=== PATIENT | male | born 1950 | race Caucasian/White ===

== ENCOUNTER 2024-01-12 00:56 | Inpatient (IN) | payer OTHER, MEDICAID ==
[2024-01-12] VITALS (8 sets, daily range): BP systolic 121–135; PULSE 64–87; RESP 13–20; TEMP 97.5–98.4; O2SAT 93–99
[~2024-01-12] VITALS: Ht 190.5 cm; Wt 77.6 kg
[2024-01-12] MEDS: THIAMINE HCL 100 MG TABLET PO ONE (01:00)
[2024-01-12] MEDS: LIDOCAINE PATCH 5% 1 EA TP ONE (01:00)
[2024-01-12] MEDS ORDERED: cefTRIAXone 1 GM IVPB PREMIX 50 ML IV SCH (01:00)
[2024-01-12] MEDS: LEVOTHYROXINE SODIUM 0.025 MG TABLET PO ONE (01:00)
[2024-01-12] MEDS: amLODIPine BESYLATE 10 MG TABLET PO ONE (01:00)
[2024-01-12] MEDS: ASPIRIN 81 MG TAB.CHEW PO ONE ×2 (01:00→11:30)
[2024-01-12] MEDS: FOLIC ACID 1 MG TABLET PO ONE (01:00)
[2024-01-12] MEDS: lisinopriL 20 MG TABLET PO ONE (01:00)
[2024-01-12 01:32] LABS: BASOPHILS # (AUTO) 0.1 K/uL (0.0-0.2); BASOPHILS % (AUTO) 0.5 % (0.0-2.0); EOSINOPHILS # (AUTO) 0.1 K/uL (0.0-0.4); EOSINOPHILS % (AUTO) 0.7 % (0.0-4.0); HEMATOCRIT 28.6 % (36-54); HEMOGLOBIN 10.1 g/dL (14.0-18.0); LYMPHOCYTES # (AUTO) 0.8 K/uL (1.0-5.5); LYMPHOCYTES % (AUTO) 7.7 % (20.5-51.5); MEAN CORPUSCULAR HEMOGLOBIN 31 pg (27-31); MEAN CORPUSCULAR HGB CONC 35 % (32-36); MEAN CORPUSCULAR VOLUME 88 fL (79.0-98.0); MONOCYTES # (AUTO) 0.9 K/uL (0.0-1.0); MONOCYTES % (AUTO) 8.7 % (1.7-9.3); NEUTROPHILS # (AUTO) 8.6 K/uL (1.8-7.7); NEUTROPHILS % (AUTO) 82.4 % (40.0-70.0); PLATELET COUNT (AUTO) 564 K/uL (130-430); RED BLOOD CELL COUNT(AUTO) 3.27 MIL/uL (4.2-6.2); RED CELL DISTRIBUTION WIDTH 12.8 % (9.0-15.0); WHITE BLOOD COUNT (AUTO) 10.4 K/uL (4.8-10.8)
[2024-01-12 01:48] LABS: VENOUS PCO2 29.2 mmHg (41.0-54.0); VENOUS PH BG 7.536 (7.310-7.450); VENOUS PO2 64.9 mmHg (25.0-35.0)
[2024-01-12 01:49] LABS: VENOUS BASE EXCESS 2.2 mmol/l (-2.0-2.0)
[2024-01-12 02:00] LABS: ALANINE AMINOTRANSFERASE 37 U/L (12-78); ALBUMIN 2.1 g/dL (3.4-4.8); ANION GAP 5 (5-15); ASPARTATE AMINOTRANSFERASE 25 U/L (10-37); CALCIUM 8.5 mg/dL (8.4-11.0); CARBON DIOXIDE 28 mmol/L (23-29); CHLORIDE 93 mmol/L (98-107); CREATININE 1.32 mg/dL (0.55-1.30); GLUCOSE 319 mg/dL (74-106); POTASSIUM 5.2 mmol/L (3.5-5.1); SODIUM SERUM 126 mmol/L (136-145); TOTAL BILIRUBIN 0.6 mg/dL (0.0-1.0); TOTAL PROTEIN, SERUM 7.2 g/dL (6.4-8.3); UREA NITROGEN, BLOOD 17 mg/dL (8-21)
[2024-01-12 02:01] LABS: BILIRUBIN,DIRECT 0.2 mg/dL (0.0-0.3); LIPASE 95 U/L (16-77)
[2024-01-12] MEDS: NACL 0.9% 1,000 ML IV ONE (02:09)
[2024-01-12 02:20] LABS: ACETONE, SERUM NEGATIVE (NEGATIVE)
[2024-01-12] MEDS ORDERED: PRAMIPEXOLE DI-HCL 0.25 MG TABLET PO ONE (02:30)
[2024-01-12 02:50] LABS: BILIRUBIN,URINE NEGATIVE (NEGATIVE); BLOOD, URINE 1+ (NEGATIVE); CLARITY/URINE CLOUDY (CLEAR); COLOR,URINE YELLOW (YELLOW); GLUCOSE,URINE 3+ (NEGATIVE); KETONES,URINE NEGATIVE (NEGATIVE); LEUKOCYTE ESTERASE ,URINE 2+ (NEGATIVE); NITRITE, URINE POSITIVE (NEGATIVE); PROTEIN URINE NEGATIVE (NEGATIVE); UROBILINOGEN,URINE 0.2 (0.2-1.0)
[2024-01-12 03:07] LABS: BACTERIA,URINE MODERATE /HPF (None Seen); WBC,URINE 50-80 /HPF (0-3)
[2024-01-12] MEDS ORDERED: cefTRIAXone 1 GM VIAL ONE (04:07)
[2024-01-12] MEDS ORDERED: NOR10 PO (04:09)
[2024-01-12] MEDS ORDERED: HYDR-3927 PO (04:09)
[2024-01-12] MEDS ORDERED: GLIM2TAB PO (04:09)
[2024-01-12] MEDS ORDERED: FAMO-132 PO (04:09)
[2024-01-12] MEDS ORDERED: INSU100V46 (04:09)
[2024-01-12] MEDS ORDERED: MAG30ORA22 PO (04:09)
[2024-01-12] MEDS ORDERED: GLUC1VIA14 IM (04:09)
[2024-01-12] MEDS ORDERED: FOLI-43 PO (04:09)
[2024-01-12] MEDS ORDERED: MORP10SO PO (04:09)
[2024-01-12] MEDS ORDERED: MOM PO (04:09)
[2024-01-12] MEDS ORDERED: LEVO25TA7 PO (04:09)
[2024-01-12] MEDS ORDERED: ACET325T53 PO (04:09)
[2024-01-12] MEDS ORDERED: TAMS-11 PO (04:09)
[2024-01-12] MEDS ORDERED: THIA100T70 PO (04:09)
[2024-01-12] MEDS ORDERED: LIDO700A30 TP (04:09)
[2024-01-12] MEDS ORDERED: ASPI-1155 PO (04:09)
[2024-01-12] MEDS ORDERED: INSU100I26 SQ (04:09)
[2024-01-12] MEDS ORDERED: HYDR-3917 PO (04:09)
[2024-01-12] MEDS ORDERED: CLON0.1T PO (04:09)
[2024-01-12] MEDS ORDERED: ONDA-8 TL (04:09)
[2024-01-12] MEDS ORDERED: LISI40TA13 PO (04:09)
[2024-01-12] MEDS: cefTRIAXone 1 GM in D5W 50 ML IV ONE (04:10)
[2024-01-12] MEDS: roPINIRole HCL 0.25 MG ( REQUIP )TABLET PO ONE (04:18)
[2024-01-12] MEDS: INSULIN REGULAR, HUMAN 100 UNITS/ML, 3 ML VIAL (humuLIN R) SUBCUT PRN ×2 (06:05→22:01)
[2024-01-12] MEDS ORDERED: HYDROcodone/ACETAMIN 5-325 MG TAB (NORCO/ VICODIN) PO PRN (10:30)
[2024-01-12] MEDS ORDERED: HYDROcodone/ACETAMIN 10-325 MG TAB PO PRN (10:30)
[2024-01-12] MEDS ORDERED: LORazepam 2 MG/ML VIAL IVP PRN (10:30)
[2024-01-12] MEDS ORDERED: GLUCAGON HCL 1 MG IM PRN (10:30)
[2024-01-12] MEDS ORDERED: ONDANSETRON 4 MG ODT TAB TL PRN (10:30)
[2024-01-12] MEDS ORDERED: ONDANSETRON HCL 4 MG/2 ML VIAL IVP PRN (10:30)
[2024-01-12] MEDS ORDERED: MILK OF MAGNESIA 30 ML UDC PO PRN (10:30)
[2024-01-12] MEDS ORDERED: NALOXONE HCL 0.4 MG/ML AMP (NARCAN) IVP PRN ×2 (10:30)
[2024-01-12] MEDS ORDERED: ACETAMINOPHEN 325 MG TABLET PO PRN (10:30)
[2024-01-12] MEDS ORDERED: cloNIDine HCL 0.1 MG TABLET PO PRN (10:30)
[2024-01-12] MEDS ORDERED: MAG-AL HYDROX/SIMETH 30 ML UDC PO PRN (10:30)
[2024-01-12] MEDS: GLIMEPIRIDE 2 MG TABLET PO ONE (11:29)
[2024-01-12] MEDS: NORMAL SALINE 5 ML DISP.SYRIN IVF SCH (17:38)
[2024-01-12] MEDS: INSULIN GLARGINE 100 UNITS/ML, 10 ML VIAL SUBCUT SCH (22:00)
[2024-01-12] MEDS: TAMSULOSIN HCL 0.4 MG CAP PO SCH (22:03)
[2024-01-12] MEDS: FAMOTIDINE 20 MG TABLET PO SCH (22:03)
[2024-01-13 00:15] VITALS: BP_SYST 106; PULSE 89; RESP 18; TEMP 99.1; O2SAT 98
[2024-01-13 04:00] VITALS: BP_SYST 103; PULSE 76; RESP 17; TEMP 99.3; O2SAT 96
[2024-01-13 06:31] LABS: BASOPHILS # (AUTO) 0.1 K/uL (0.0-0.2); BASOPHILS % (AUTO) 0.6 % (0.0-2.0); EOSINOPHILS # (AUTO) 0.1 K/uL (0.0-0.4); EOSINOPHILS % (AUTO) 0.7 % (0.0-4.0); HEMATOCRIT 30.1 % (36-54); HEMOGLOBIN 10.1 g/dL (14.0-18.0); LYMPHOCYTES # (AUTO) 0.8 K/uL (1.0-5.5); LYMPHOCYTES % (AUTO) 6.5 % (20.5-51.5); MEAN CORPUSCULAR HEMOGLOBIN 30 pg (27-31); MEAN CORPUSCULAR HGB CONC 34 % (32-36); MEAN CORPUSCULAR VOLUME 89 fL (79.0-98.0); MONOCYTES # (AUTO) 0.9 K/uL (0.0-1.0); MONOCYTES % (AUTO) 7.3 % (1.7-9.3); NEUTROPHILS # (AUTO) 10.3 K/uL (1.8-7.7); NEUTROPHILS % (AUTO) 84.9 % (40.0-70.0); PLATELET COUNT (AUTO) 559 K/uL (130-430); RED BLOOD CELL COUNT(AUTO) 3.39 MIL/uL (4.2-6.2); RED CELL DISTRIBUTION WIDTH 12.9 % (9.0-15.0); WHITE BLOOD COUNT (AUTO) 12.1 K/uL (4.8-10.8)
[2024-01-13 06:42] LABS: ANION GAP 8 (5-15); CALCIUM 8.9 mg/dL (8.4-11.0); CARBON DIOXIDE 28 mmol/L (23-29); CHLORIDE 95 mmol/L (98-107); CREATININE 1.17 mg/dL (0.55-1.30); GLUCOSE 135 mg/dL (74-106); POTASSIUM 4.6 mmol/L (3.5-5.1); SODIUM SERUM 131 mmol/L (136-145); UREA NITROGEN, BLOOD 14 mg/dL (8-21)
[2024-01-13 06:44] LABS: TOTAL IRON BIND. CAPACITY 215 ug/dL (250-450)
[2024-01-13] MEDS: GLIMEPIRIDE 2 MG TABLET PO SCH (06:51)
[2024-01-13 08:07] VITALS: BP_SYST 110; PULSE 83; RESP 18; TEMP 97.2; O2SAT 98
[2024-01-13] MEDS: THIAMINE HCL 100 MG TABLET PO SCH (09:00)
[2024-01-13] MEDS ORDERED: cefTRIAXone 1 GM IVPB PREMIX 50 ML IV SCH (09:00)
[2024-01-13] MEDS: lisinopriL 20 MG TABLET PO SCH (09:00)
[2024-01-13] MEDS: LEVOTHYROXINE SODIUM 0.025 MG TABLET PO SCH (09:00)
[2024-01-13] MEDS: amLODIPine BESYLATE 10 MG TABLET PO SCH (09:00)
[2024-01-13] MEDS: FOLIC ACID 1 MG TABLET PO SCH (09:00)
[2024-01-13] MEDS: ASPIRIN 81 MG TAB.CHEW PO SCH (09:00)
[2024-01-13] MEDS: cefTRIAXone 1 GM IVPB PREMIX 50 ML IV SCH (09:41)
[2024-01-13] MEDS: LIDOCAINE PATCH 5% 1 EA TP SCH (11:24)
[2024-01-13 12:10] VITALS: BP_SYST 112; PULSE 76; RESP 16; TEMP 97.4; O2SAT 98
[2024-01-13] MEDS: BISACODYL 5 MG TABLET.DR (DULCOLAX) PO ONE (16:53)
[2024-01-13 18:24] VITALS: BP_SYST 112; PULSE 72; RESP 18; TEMP 97; O2SAT 97
[2024-01-13] MEDS: GOLYTELY / COLYTE SOLUTION 4 LITERS PO ONE (18:28)
[2024-01-13 20:00] VITALS: BP_SYST 127; PULSE 92; RESP 20; TEMP 98; O2SAT 100
[2024-01-13] MEDS: MORPHINE SULFATE 10 MG/5 ML ORAL SOL. UDC PO PRN (21:02)
[2024-01-13] MEDS: D5/0.45 NS 1,000 ML IV SCH (22:38)
[2024-01-14] VITALS (7 sets, daily range): BP systolic 112–143; PULSE 73–86; RESP 13–18; TEMP 96.8–99; O2SAT 96–99
[2024-01-14 06:46] LABS: BASOPHILS % (AUTO) 0.3 % (0.0-2.0); EOSINOPHILS # (AUTO) 0.1 K/uL (0.0-0.4); EOSINOPHILS % (AUTO) 0.4 % (0.0-4.0); HEMATOCRIT 27.4 % (36-54); HEMOGLOBIN 9.2 g/dL (14.0-18.0); LYMPHOCYTES # (AUTO) 0.5 K/uL (1.0-5.5); LYMPHOCYTES % (AUTO) 4.1 % (20.5-51.5); MEAN CORPUSCULAR HEMOGLOBIN 30 pg (27-31); MEAN CORPUSCULAR HGB CONC 34 % (32-36); MEAN CORPUSCULAR VOLUME 89 fL (79.0-98.0); MONOCYTES # (AUTO) 0.7 K/uL (0.0-1.0); MONOCYTES % (AUTO) 5.8 % (1.7-9.3); NEUTROPHILS # (AUTO) 11.5 K/uL (1.8-7.7); NEUTROPHILS % (AUTO) 89.4 % (40.0-70.0); PLATELET COUNT (AUTO) 502 K/uL (130-430); RED BLOOD CELL COUNT(AUTO) 3.07 MIL/uL (4.2-6.2); RED CELL DISTRIBUTION WIDTH 13.1 % (9.0-15.0); WHITE BLOOD COUNT (AUTO) 12.9 K/uL (4.8-10.8)
[2024-01-14 06:53] LABS: ERYTHROCYTE SEDIMENTATION RATE 53 MM/HR (0-15)
[2024-01-14 07:10] LABS: INR 1.2 (0.80-1.20)
[2024-01-14 07:34] LABS: ALANINE AMINOTRANSFERASE 30 U/L (12-78); ALBUMIN 1.9 g/dL (3.4-4.8); ANION GAP 8 (5-15); ASPARTATE AMINOTRANSFERASE 19 U/L (10-37); CALCIUM 8.3 mg/dL (8.4-11.0); CARBON DIOXIDE 27 mmol/L (23-29); CHLORIDE 99 mmol/L (98-107); CREATININE 1.06 mg/dL (0.55-1.30); GLUCOSE 94 mg/dL (74-106); POTASSIUM 3.7 mmol/L (3.5-5.1); SODIUM SERUM 134 mmol/L (136-145); TOTAL BILIRUBIN 0.5 mg/dL (0.0-1.0); TOTAL PROTEIN, SERUM 6.6 g/dL (6.4-8.3); UREA NITROGEN, BLOOD 13 mg/dL (8-21)
[2024-01-14] MEDS: MEPERIDINE 100 MG INJ. 100 MG/ML VIAL ONE (10:35)
[2024-01-14] MEDS: MIDAZOLAM HCL 5 MG/5 ML VIAL ONE (10:35)
[2024-01-14] MEDS: SIMETHICONE 40 MG/0.6 ML ML ONE (10:35)
[2024-01-14] MEDS: NORMAL SALINE 5 ML DISP.SYRIN IVF SCH (14:00)
[2024-01-14] MEDS: BISACODYL 5 MG TABLET.DR (DULCOLAX) PO ONE (17:00)
[2024-01-15] VITALS: BP_SYST 118; PULSE 81; RESP 18; TEMP 97.5; O2SAT 96
[2024-01-15 01:06] LABS: AFP, TUMOR MARKER <1.8 ng/mL (0.0-8.4); GAMMA GLUTAMYL TRANSFERASE 66 IU/L (0-65)
[2024-01-15 02:06] LABS: ALPHA-1-ANTITRYPSIN, S 296 mg/dL (101-187)
[2024-01-15 06:09] LABS: BASOPHILS # (AUTO) 0.1 K/uL (0.0-0.2); BASOPHILS % (AUTO) 0.8 % (0.0-2.0); EOSINOPHILS # (AUTO) 0.1 K/uL (0.0-0.4); EOSINOPHILS % (AUTO) 0.6 % (0.0-4.0); HEMATOCRIT 28.9 % (36-54); HEMOGLOBIN 9.9 g/dL (14.0-18.0); LYMPHOCYTES # (AUTO) 0.7 K/uL (1.0-5.5); LYMPHOCYTES % (AUTO) 8.1 % (20.5-51.5); MEAN CORPUSCULAR HEMOGLOBIN 30 pg (27-31); MEAN CORPUSCULAR HGB CONC 34 % (32-36); MEAN CORPUSCULAR VOLUME 88 fL (79.0-98.0); MONOCYTES # (AUTO) 0.7 K/uL (0.0-1.0); MONOCYTES % (AUTO) 7.2 % (1.7-9.3); NEUTROPHILS # (AUTO) 7.5 K/uL (1.8-7.7); NEUTROPHILS % (AUTO) 83.3 % (40.0-70.0); PLATELET COUNT (AUTO) 499 K/uL (130-430); RED BLOOD CELL COUNT(AUTO) 3.29 MIL/uL (4.2-6.2); RED CELL DISTRIBUTION WIDTH 12.8 % (9.0-15.0); WHITE BLOOD COUNT (AUTO) 9.1 K/uL (4.8-10.8)
[2024-01-15 06:12] LABS: HEPATITIS A AB, IgM Negative (Negative); HEPATITIS B CORE AB, IgM Negative (Negative); HEPATITIS B SURFACE AG Negative (Negative)
[2024-01-15 06:14] LABS: ERYTHROCYTE SEDIMENTATION RATE 58 MM/HR (0-15)
[2024-01-15 06:38] LABS: ANION GAP 8 (5-15); CALCIUM 8.5 mg/dL (8.4-11.0); CARBON DIOXIDE 27 mmol/L (23-29); CHLORIDE 99 mmol/L (98-107); CREATININE 1.03 mg/dL (0.55-1.30); GLUCOSE 89 mg/dL (74-106); POTASSIUM 3.9 mmol/L (3.5-5.1); SODIUM SERUM 134 mmol/L (136-145); UREA NITROGEN, BLOOD 9 mg/dL (8-21)
[2024-01-15 08:23] VITALS: BP_SYST 129; PULSE 82; RESP 18; TEMP 98.2; O2SAT 98
[2024-01-15 11:12] VITALS: BP_SYST 141; PULSE 77; RESP 16; TEMP 96.9; O2SAT 94
[2024-01-15] MEDS ORDERED: LEVO-62 PO (12:21)
[2024-01-15] MEDS ORDERED: LEVOTHYROXINE SODIUM 0.025 MG TABLET PO SCH (12:42)
[2024-01-15 13:07] LABS: ANTI NUCLEAR AB WITH REFLEX Negative (Negative)
[2024-01-15 14:07] LABS: ANTI-SMOOTH MUSCLE AB 9 Units (0-19)
[2024-01-15 15:16] VITALS: BP_SYST 132; PULSE 88; RESP 16; TEMP 97.2; O2SAT 98
[2024-01-15] MEDS ORDERED: BISACODYL 5 MG TABLET.DR (DULCOLAX) PO ONE (17:00)
[2024-01-22 11:07] LABS: HEPATITIS C VIRUS AB Reactive (Non Reactive)
== END 2024-01-15 17:00 | DRG 872 ==
LOC: SED 00:56 → SMU 03:35
PROVIDERS: ADMIT Preventive Medicine Preventive Medicine/Occupational Environmental Medicine; ATTEND Preventive Medicine Preventive Medicine/Occupational Environmental Medicine
PROC: 0DB98ZX Excision of Duodenum, Via Natural or Artificial Opening Endoscopic, Diagnostic (ICD-10-PCS; 2024-01-14)
PROC: 0DB78ZX Excision of Stomach, Pylorus, Via Natural or Artificial Opening Endoscopic, Diagnostic (ICD-10-PCS; principal; 2024-01-14 12:15)
PROC: 0DJD8ZZ Inspection of Lower Intestinal Tract, Via Natural or Artificial Opening Endoscopic (ICD-10-PCS; 2024-01-14 12:15)
DX: A41.9 Sepsis, unspecified organism (principal); E87.1 Hypo-osmolality and hyponatremia; N13.6 Pyonephrosis; K56.600 Partial intestinal obstruction, unspecified as to cause; K56.7 Ileus, unspecified; E11.65 Type 2 diabetes mellitus with hyperglycemia; K74.60 Unspecified cirrhosis of liver; K29.70 Gastritis, unspecified, without bleeding; D64.9 Anemia, unspecified; N40.0 Benign prostatic hyperplasia without lower urinary tract symptoms; I48.91 Unspecified atrial fibrillation; D75.839 Thrombocytosis, unspecified; E03.9 Hypothyroidism, unspecified; E11.43 Type 2 diabetes mellitus with diabetic autonomic (poly)neuropathy; E88.09 Other disorders of plasma-protein metabolism, not elsewhere classified; F10.10 Alcohol abuse, uncomplicated; N32.0 Bladder-neck obstruction; K76.0 Fatty (change of) liver, not elsewhere classified; K64.8 Other hemorrhoids; K63.5 Polyp of colon; K44.9 Diaphragmatic hernia without obstruction or gangrene; G25.81 Restless legs syndrome; Z90.79 Acquired absence of other genital organ(s); Z87.19 Personal history of other diseases of the digestive system; Z79.899 Other long term (current) drug therapy; B96.20 Unspecified Escherichia coli [E. coli] as the cause of diseases classified elsewhere; K64.4 Residual hemorrhoidal skin tags
CPT/HCPCS: 36415; 36600; 43239; 71045; 76700; 80048; 80053; 80074; 80076; 81000; 81001; 81015; 82009; 82103; 82105; 82803; 82948; 83516; 83540; 83550; 83605; 83690; 84484; 85025; 85610; 85651; 85730; 86038; 87040; 87081; 87086; 87186; 88305; 88312; 88313; 93005; 96365; 97110-GP; 97116-GP; 97163-GP; 97530-GP; 99285; J0696; J1815; J2175; J2250